=== PATIENT | male | born 1990 | race Two or more races ===

== ENCOUNTER 2023-07-30 12:55 | Emergency (ER) | payer MEDICAID, OTHER ==
[~2023-07-30] VITALS: Ht 180.3 cm; Wt 95.5 kg
[2023-07-30 13:27] VITALS: TEMP 98.6
[2023-07-30] MEDS ORDERED: IBUP-1492 PO (18:59)
[2023-07-30] MEDS ORDERED: ACET-3385 PO (19:01)
[2023-07-30 19:22] VITALS: BP 134/77; PULSE 94; RESP 18
== END 2023-07-30 19:22 | disposition home or self-care (01) ==
LOC: EMS 13:19
DX: M25.572 Pain in left ankle and joints of left foot (principal); G40.909 Epilepsy, unspecified, not intractable, without status epilepticus
CPT/HCPCS: 99283

== ENCOUNTER 2024-01-09 19:51 | Emergency (ER) | payer OTHER ==
[~2024-01-09] VITALS: Ht 180.3 cm; Wt 112.7 kg
[~2024-01-09 19:51] MED LIST: ACET-3385 PO; IBUP-1492 PO
[2024-01-09 20:45] LABS: COVID AG,FIA SOURCE NASAL SWAB
[2024-01-09 21:00] LABS: BASOPHILS % (AUTO) 0.4 % (0.0-2.0); EOSINOPHILS % (AUTO) 0.1 % (1.0-6.0); HEMATOCRIT 42.9 % (41-53); HEMOGLOBIN 14.8 g/dL (13.5-17.5); LYMPHOCYTES # (AUTO) 0.9 K/uL (1.0-4.8); LYMPHOCYTES % (AUTO) 13.5 % (22.0-44.0); MEAN CORPUSCULAR HEMOGLOBIN 31.4 pg (26.0-34.0); MEAN CORPUSCULAR HGB CONC 34.5 G/dL (31.0-37.0); MEAN CORPUSCULAR VOLUME 91 fL (80-100); MONOCYTES # (AUTO) 0.7 K/uL (0.1-1.0); MONOCYTES % (AUTO) 10.5 % (2.0-9.0); NEUTROPHILS # (AUTO) 5.1 K/uL (1.8-7.7); NEUTROPHILS % (AUTO) 75.5 % (40.0-70.0); PLATELET COUNT (AUTO) 199 K/uL (150-450); RED BLOOD CELL COUNT(AUTO) 4.71 MIL/uL (4.50-5.90); RED CELL DISTRIBUTION WIDTH 13.6 % (11.5-14.5); WHITE BLOOD COUNT (AUTO) 6.8 K/uL (4.5-11.0)
[2024-01-09 21:01] LABS: ANION GAP 11 mmol/L (8-16); CALCIUM, TOTAL 8.5 mg/dL (8.8-10.5); CARBON DIOXIDE 24 mmol/L (22-29); CHLORIDE 98 mmol/L (98-107); CREATININE 0.99 mg/dL (0.60-1.30); GLOMERULAR FILTR. RATE CALC > 60 mL/min (>60); GLUCOSE,RANDOM 109 mg/dL (70-110); POTASSIUM 3.6 mmol/L (3.5-5.1); SODIUM SERUM 133 mmol/L (136-145); UREA NITROGEN, BLOOD 15 mg/dL (7-18)
[2024-01-09 21:06] LABS: ALCOHOL, BLOOD (SERUM) < 3 mg/dL (0-10)
[2024-01-09 21:23] LABS: SARS-COV2 (COVID) ANTIGEN,FIA Negative (Negative)
[2024-01-09 21:24] LABS: INFLUENZA TYPE A NEGATIVE FOR TYPE A (NEGATIVE); INFLUENZA TYPE B NEGATIVE FOR TYPE B (NEGATIVE)
[2024-01-10 02:27] LABS: APPEARANCE,URINE CLEAR (CLEAR); BILIRUBIN,URINE NEGATIVE (NEGATIVE); COLOR,URINE YELLOW (YELLOW); GLUCOSE, URINE (UA) NEGATIVE (NEGATIVE); KETONES,URINE NEGATIVE (NEGATIVE); LEUKOCYTE ESTERASE ,URINE NEGATIVE (NEGATIVE); NITRATE,URINE NEGATIVE (NEGATIVE); OCCULT BLOOD,URINE SMALL (NEGATIVE); PH,URINE 5.5 (5.0-8.0); PROTEIN,URINE 30-70 mg/dL (NEGATIVE); SPECIFIC GRAVITIY, URINE 1.033 (1.003-1.030); UROBILINOGEN,URINE <=1.0 mg/dL (<=1.0)
[2024-01-10 02:33] LABS: BACTERIA,URINE None Seen /HPF (None Seen); RBC,URINE 0-2 /HPF (0-2); SQUAMOUS EPITHELIAL CELL,UR Few /LPF (None Seen); WBC,URINE None Seen /HPF (0-5)
[2024-01-10 03:54] VITALS: BP 122/79; PULSE 104; RESP 20; TEMP 100.9
[2024-01-10] MEDS: SODIUM CHLORIDE 0.9% 1,000 ML IV ONE (04:12)
== END 2024-01-10 06:00 | disposition home or self-care (01) ==
LOC: EMS 19:51
DX: J06.9 Acute upper respiratory infection, unspecified (principal); Z98.890 Other specified postprocedural states; Z20.822 Contact with and (suspected) exposure to COVID-19
CPT/HCPCS: 99284; 87426; 80048; 81001; 85025; 87804; 36415; 96360; 71045; G0480; J7030